=== PATIENT | female | born 1960 ===

== ENCOUNTER 2023-08-19 15:02 | Outpatient (REF) | payer BC, SELFPAY ==
[2023-08-19 15:33] LABS: ALT 21 U/L (14-59); AST 19 U/L (15-37); Albumin 3.7 g/dL (3.4-5.0); Alkaline Phosphatase 53 U/L (46-116); Anion Gap 8.5 mmol/L (3-11); BUN 14 mg/dL (7-18); Bilirubin, Total 0.8 mg/dL (0.2-1.0); CO2 30.5 mmol/L (21.0-32.0); CREATININE 0.7 mg/dL (0.55-1.02); Calcium 9.1 mg/dL (8.5-10.1); Chloride 105 mmol/L (98-107); Estimated GFR 98.34 (mL/min/1.73m2); Glucose 66 mg/dL (74-106); Sodium 144 mmol/L (136-145); Total Protein 7.1 g/dL (6.4-8.2)
[2023-08-19 16:10] LABS: Vitamin D 25 Total 88.9 ng/mL (30-100)
== END 2023-08-19 15:03 | disposition home or self-care (01) ==
LOC: NCHCN 15:02
PROVIDERS: PCP Family Medicine; Visit Provider Family Medicine
DX: R53.83 Other fatigue (principal); E55.9 Vitamin D deficiency, unspecified
CPT/HCPCS: 80053; 82306

== ENCOUNTER 2025-01-11 13:49 | Outpatient (REF) | payer BC, SELFPAY ==
[2025-01-11 21:48] LABS: HCT 43.2 % (36.0-46.0); HGB 14.3 g/dL (11.2-15.7); MCH 30.3 pg (27.0-33.0); MCHC 33.1 % (32.0-36.0); MCV 92 fL (80-95); MPV 9.7 fL (8.0-11.0); Platelet Count 247 10^3/uL (130-400); RBC 4.72 10^6/uL (3.93-5.22); RDW 12.5 % (11.7-14.6); RDW-SD 42.2 fL; WBC 5.40 10^3/uL (4.4-10.8)
[2025-01-11 21:59] LABS: Iron 129 ug/dL (50-170); Total Iron Binding Capacity 363 ug/dL (250-450); Transferrin Sat 36 % (15-50)
[2025-01-11 22:25] LABS: Calculated LDL 89 mg/dL (<100); Cholesterol 194 mg/dL (<200); Ferritin 96 ng/mL (8-252); HDL Cholesterol 98 mg/dL (>or=50); TSH (W/Ref FT4) 1.37 uIU/mL (0.36-3.74); Triglyceride 35 mg/dL (<150); Vitamin D 25 Total 74 ng/mL (30-100)
== END 2025-01-11 13:50 | disposition home or self-care (01) ==
LOC: NCHCN 13:49
PROVIDERS: PCP Family Medicine; Visit Provider Family Medicine
DX: R53.83 Other fatigue (principal); E55.9 Vitamin D deficiency, unspecified; Z00.00 Encounter for general adult medical examination without abnormal findings
CPT/HCPCS: 80061; 82306; 85027; 82728; 83540; 83550; 84443